=== PATIENT | female | born 1955 | race Caucasian/White ===

== ENCOUNTER 2017-04-02 16:45 | Emergency (ER) | payer OTHER ==
[2017-04-02] MEDS ORDERED: TETANUS/DIPHTHERIA/PERTUSSIS 0.5 ML SYRINGE IM ONE (17:01)
[2017-04-02] MEDS ORDERED: LIDOCAINE 2%-EPI 1:100000 20 ML MDV SUBQ STA (17:02)
[2017-04-02] MEDS ORDERED: LIDOCAINE 2%-EPI 1:100000 20 ML MDV ONE (17:16)
[2017-04-02] MEDS ORDERED: TETANUS/DIPHT/PERTUSS (PED) 0.5 ML VIAL IM ONE (17:38)
--- NOTE | 2017-04-02 17:58 | ED Physician Documentation ---
PD HPI LOWER EXT INJURY - Stated complaint Stated Complaint: R LEG LAC - Chief complaint Chief Complaint: Laceration - History obtained from History obtained from: Patient, Family - History of Present Illness PD HPI LOW EXT INJURY LOCATION: Right, Lower leg Type of injury: Laceration Where injury occurred: Home Timing - onset: How many hours ago (1) Timing - duration: Hours (1) Timing - details: Abrupt onset Pain level max: 5 Pain level now: 3 Improved by: Rest Worsened by: Moving, Palpating Associated symptoms: No: Weakness, Numbness, Tingling, Swelling Contributing factors: No: Anticoagulated Recently seen: Not recently seen - Additional information Additional information: stepped backwards into a ceramic pot. Review of Systems Constitutional: denies: Fever, Chills Neurologic: denies: Focal weakness, Numbness PD PAST MEDICAL HISTORY - Past Medical History Past Medical History: No Cardiovascular: None Respiratory: None Neuro: None Endocrine/Autoimmune: None GI: None [employer]ER POWERHOUSE: None : None HEENT: Chronic vision loss Psych: None Musculoskeletal: None Derm: None - Past Surgical History Past Surgical History: Yes General: Appendectomy - Allergies Allergies/Adverse Reactions: Allergies Allergy/AdvReac Type Severity Reaction Status Date / Time No Known Drug Allergies Allergy Verified 04/02/17 17:14 - Social History Does the pt smoke?: No Smoking Status: Never smoker Does the pt drink ETOH?: Yes Does the pt have substance abuse?: No - Immunizations Immunizations are current?: No Immunizations: TDAP >10years/unknown - POLST Patient has POLST: No PD ED PE NORMAL - Vitals Vital signs reviewed: Yes - General General: Alert and oriented X 3, No acute distress - Derm Derm: Warm and dry - Neuro Neuro: Alert and oriented X 3 - Psych Psych: Normal mood, Normal affect PD ED PE EXPANDED - Extremities JOSE DAVID LE visual: 1 - laceration (V shaped, flap laceration. NVI. Into subcutaneous fat. No tendon or muscle involvement. 7cm) Results - Vitals Vitals: Vital Signs - 24 hr 04/02/17 04/02/17 04/02/17 16:55 17:16 18:10 Temperature 36.6 C 37.2 C Heart Rate 89 76 Respiratory 12 15 Rate Blood Pressure 139/76 H 116/68 O2 Saturation 98 97 Oxygen O2 Source Room air Procedures - Laceration (location) R LE Length in cm: 7 Wound type: Flap, Into subcut fat, Clean Neurovascular status: Sensory intact, Motor intact, Vascular intact Tendon involvement: No: Tendon Injury Anesthesia: Lidocaine 2% with epi Wound Preparation: Irrigated copiously NS, Wound explored, To the base. No: FB identified, FB removed Skin layer closure: Chapo, Steri strips Other: Patient tolerated well, No complications, Neurovascular intact, Tetanus booster given Complexity: Simple PD MEDICAL DECISION MAKING - ED course Complexity details: considered differential, d/w patient, d/w family ED course: Patient is a 62-year-old female who presents to the emergency department with a right leg laceration, this is a flap laceration with poor blood supply to the distal tip. At the areas of good blood supply chapo were used to secure the wound. A Steri-Strip was applied over the tip that has a poor blood supply. Patient was counseled that this may not adhere and may require ongoing wound care. Patient was also counseled that this may turn necrotic and need to be removed with her doctor. She is comfortable with this plan. Will not place on antibiotics at this time. The wound was irrigated with approximately 1 L of normal saline. Warnings of infection and instructions on wound care given at bedside. Also counseled on how to minimize scarring. . Patient and family counseled regarding signs and symptoms for which I believe and urgent re- evaluation would be necessary. Patient with good understanding of and agreement to plan and is comfortable going home at this time This document was made in part using voice recognition software. While efforts are made to proofread this document, sound alike and grammatical errors may occur. Departure - Departure Disposition: 01 Home, Self Care Clinical Impression: Leg laceration Qualifiers: Encounter type: initial encounter Laterality: right Qualified Code(s): S81.811A - Laceration without foreign body, right lower leg, initial encounter Condition: Good Instructions: ED Laceration Ext Sutr Stap Tape Follow-Up: your,doctor in 10-14 days for staple removal [Other] Comments: You need to follow up with your doctor in 10-14 days for suture removal. Return if you worsen. You may need ongoing wound care if that small flap does not re- adhere. Discharge Date/Time: 04/02/17 18:16
[2017-04-02] MEDS ORDERED: BACITRACIN OINT TOP ONE (18:10)
[2017-04-02 18:11] VITALS: BP 116/68
== END 2017-04-02 18:16 | disposition home or self-care (01) ==
LOC: ED 16:45
DX: S81.811A Laceration without foreign body, right lower leg, initial encounter (principal); W26.8XXA Contact with other sharp object(s), not elsewhere classified, initial encounter; Y92.019 Unspecified place in single-family (private) house as the place of occurrence of the external cause; Z23 Encounter for immunization
CPT/HCPCS: 12002; 90471; 99282; 99283; A9270